=== PATIENT | male | born 1980 | race Caucasian/White ===

== ENCOUNTER 2017-07-15 22:42 | Emergency (ER) | payer SELFPAY ==
[2017-07-15] MEDS ORDERED: POLYMYXIN B SULF/TRIMETHOPRIM OPHTHALMIC DROPS OP ONE (22:53)
[2017-07-15 22:59] VITALS: BP 133/76
--- NOTE | 2017-07-15 23:08 | ED Physician Documentation ---
Eye Problem - HISTORIAN Historian: patient - HPI Stated Complaint: R EYE SWOLLEN Chief Complaint: Eye Problems Additional Information: Red eye with burning discomfort and green drainage for 2-3 days. Has tried benadryl. Had conjunctivitis a few months ago but stopped medication when he got better, Location: right eye - ROS CONST: no problems - PAST HX Past History: prior eye problem Allergies/Adverse Reactions: Allergies Allergy/AdvReac Type Severity Reaction Status Date / Time No Known Allergies Allergy Verified 07/15/17 22:53 Home Medications: Ambulatory Orders Medication Instructions Recorded NK [NK] 07/15/17 - SOCIAL HX Smoking History: non-smoker - FAMILY HX Family History: no significant history - VITAL SIGNS Vital Signs: Vital Signs Temp Pulse Resp BP Pulse Ox 98.7 F 66 18 133/76 99 07/15/17 22:42 07/15/17 22:42 07/15/17 22:42 07/15/17 22:42 07/15/17 22:42 - REVIEWED ASSESSMENTS Nursing Assessment Reviewed: Yes Vitals Reviewed: Yes ED Results Lab/Radiology - Orders Orders: ED Orders Category Date Time Status Polymyxin B Sulf/Trimethoprim [Polytrim] Med 07/15/17 22:53 Once 1 drop OP NOW ONE Eye Problem Physical Exam - Physical Exam General Appearance: alert, moderate distress Eyelids: nml inspection Conjunctiva and Sclera: injected (R) Corneas: nml inspection EOM: intact Pupils: equal Anterior Chambers: nml inspection Head/ENT: nml inspection Skin: nml color (except slight erythema and mild swelling about right eye), warm Neck/Back: nml inspection Respiratory: no resp distress Neuro/Psych: neuro intact Discharge Clincal Impression: Conjunctivitis Qualifiers: Conjunctivitis type: acute Acute conjunctivitis type: unspecified Laterality: right Qualified Code(s): H10.31 - Unspecified acute conjunctivitis, right eye Referrals: Primary Doctor,No [Primary Care Provider] - 2 Days Condition: Good Disposition: 01 HOME, SELF-CARE Decision to Admit: NO Decision Time: 23:09
== END 2017-07-15 23:10 | disposition home or self-care (01) ==
LOC: ED 22:42
DX: H10.31 Unspecified acute conjunctivitis, right eye (principal)
CPT/HCPCS: 99282

== ENCOUNTER 2018-02-20 17:18 | Emergency (ER) | payer SELFPAY ==
[2018-02-20 18:02] VITALS: BP 121/76
[2018-02-20] MEDS ORDERED: DOXYCYCLINE 100 MG CAPSULE PO STA (18:15)
--- NOTE | 2018-02-20 18:27 | ED Physician Documentation ---
Addendum entered and electronically signed by Kaela Page FNP 02/21/18 10:24: Pt returned for a prescription he could afford. No change in symptoms. Bactrim DS take 1 by mouth every 12 hours given as a prescription due to documentation review and cost of med DG Original Note: Abscess - HISTORIAN Historian: patient - HPI Stated Complaint: Possible spider bite Chief Complaint: Abscess Additional Information: intro self as [employer]. pt presents to the ED via POV c/o abscess to Right upper lip. pt reports yesterday he noticed pus area on his upper lip, so tried to squeeze it and got a small amount of clear to white liquid out. Today he states area is now scabbed over. denies fever/chills or other complaints. pt denies current chest pain, dyspnea, syncope/near syncope, headache, dizz iness, visual disturbances, n/v/d, fever/chills, rash, sick contacts, dysuria, trauma. melena or hematochezia, bleeding or easy bruising, change in bowel or bladder function, no recent weight loss/gain, anxiety or depression. ROS Negative unless otherwise specified. Onset: days ago (yesterday) - ROS CONST: none - PAST HX Past History: none Other History: none Surgeries/Procedures: No Allergies/Adverse Reactions: Allergies Allergy/AdvReac Type Severity Reaction Status Date / Time No Known Allergies Allergy Verified 07/15/17 22:53 Home Medications: Ambulatory Orders Medication Instructions Recorded NK 07/15/17 - SOCIAL HX Smoking History: less than 1 pack/day Alcohol Use: none Drug Use: marijuana - FAMILY HX Family History: none - VITAL SIGNS Vital Signs: Vital Signs Temp Pulse Resp BP Pulse Ox 98.2 F 76 16 121/76 99 02/20/18 17:20 02/20/18 17:20 02/20/18 17:20 02/20/18 17:20 02/20/18 17:20 - REVIEWED ASSESSMENTS Nursing Assessment Reviewed: Yes Vitals Reviewed: Yes ED Results Lab/Radiology - Orders Orders: ED Orders Category Date Time Status Doxycycline Monohydrate [Vibramycin] Med 02/20/18 18:15 Discontinued 100 mg PO NOW STA Abscess Physical Exam - EXAM General Appearance: no acute distress, alert Skin: abscess (2 cm x 0.5 cm area abscess-draining) Location: other (upper right lip) Symptoms: warmth (mild), tenderness (mild), swelling (mild ) Extremities: non-tender, nml ROM, no edema EENT: eyes nml inspection, lips nml, gums nml, pharynx nml Neck: trachea midline, no swelling Respiratory: no resp distress Abdomen: No: guarding Neuro/Psych: oriented x3, motor nml, sensation nml, mood/affect nml Discharge Clincal Impression: Abscess Additional Instructions: Doxycycline 100 mg twice a day for ten days. take with food. Follow up with primary care next week for recheck stop smoking seek medical care immediately if weakness, difficulty breathing, feeling faint or fainting, increased rash, chest pain, shortness of breath, or fever or any concern. PLEASE UNDERSTAND THAT THIS IS AN EMERGENCY EVALUATION FOR YOUR COMPLAINT AND BY NATURE IS LIMITED AND NOT A SUBSTITUTE FOR ONGOING MEDICAL CARE. EVEN THOUGH TEST RESULTS AND TREATMENT PLAN WERE EXPLAINED THERE MAY BE A NEED FOR ADDITIONAL TESTING TO FULLY DETERMINE THE EXTENT OF YOUR ILLNESS/INJURY/OR CONCERN SO YOU SHOULD CONTACT AND OR ESTABLISH WITH A PRIMARY CARE PROVIDER (OR REFERRAL DOCTOR IF APPLICABLE) FOR AN APPOINTMENT SOON POSSIBLE Condition: Good Disposition: 01 HOME, SELF-CARE Decision to Admit: NO Date of Decison to Admit: 02/20/18 Decision Time: 18:17
== END 2018-02-20 18:50 | disposition home or self-care (01) ==
LOC: ED 17:18
DX: L02.01 Cutaneous abscess of face (principal)
CPT/HCPCS: 99282; 99283

== ENCOUNTER 2018-07-02 08:05 | Emergency (ER) | payer SELFPAY ==
--- NOTE | 2018-07-02 08:34 | ED Physician Documentation ---
General Adult - HPI Stated Complaint: ankle pain Chief Complaint: General Adult Additional Information: Patient presents to ED with a 3 day history of worsening right lateral ankle pain and swelling/redness. Patient denies any injury to the ankle. He states he has had this swelling/pain in his ankle in the past, however, it usually goes away on its own. The pain/swelling/redness is always in the same place. Patient then goes on to state he passed out 3 times this morning on the way to the bathroom. He got out of bed this morning and took 2 steps and everything went black. He was able to catch himself before he hit the floor. His room mate helped him sit up against the wall and everything went black again. Then his room mate helped him stand up and things went black again. Patient reports never losing consciousness, "things just go black". Patient admits to having these spells in the past too. He goes on to state his father had the same symptoms which began in his 30s. Patient denies hitting his head. Onset: days ago (3) Timing: still present Severity: moderate - ROS CONST: denies: fever EYES/ENT: denies: problems with vision CVS/RESP: denies: chest pain, shortness of breath GI/: denies: abdominal pain, vomiting, nausea MS/SKIN/LYMPH: none NEURO/PSYCH: fainting. denies: headache - PAST HX Past History: none Other History: none Allergies/Adverse Reactions: Allergies Allergy/AdvReac Type Severity Reaction Status Date / Time No Known Allergies Allergy Verified 07/02/18 08:20 Home Medications: Ambulatory Orders Medication Instructions Recorded Sulfamethoxazole/Trimethoprim 1 each PO BID #20 tablet 07/02/18 [Bactrim Ds] - SOCIAL HX Smoking History: cigarettes, greater than 1 pack/day Alcohol Use: rarely Drug Use: marijuana - FAMILY HX Family History: No - VITAL SIGNS Vital Signs: Vital Signs Temp Pulse Resp BP Pulse Ox 97.6 F 93 H 19 117/67 97 07/02/18 08:10 07/02/18 08:10 07/02/18 08:10 07/02/18 08:10 07/02/18 08:10 - REVIEWED ASSESSMENTS Nursing Assessment Reviewed: Yes Vitals Reviewed: Yes ED Results Lab/Radiology - Radiology Radiology Impressions: Report Submission Date: July 02, 2018 9:12:38 AM CDT Patient Study Name: ROLANDA SNYDER Date: July 02, 2018 8:51:37 AM CDT Modality Type: DX Gender: M Description: ANKLE 3 VIEWS OR MORE : 84 Institution: [facility] Physician: DONYA FOX Examination: Plain film right ankle History: RT LATERAL ANKLE PAIN AND SWELLING Findings: 3 views of the right ankle demonstrates mild degenerative spurring. No fracture or dislocation. Talar dome is intact. Mild lateral soft tissue swelling. Joint effusion. Impression: Joint effusion. Mild lateral soft tissue swelling. No acute appearing cortical abnormality. Electronically signed on July 02, 2018 9:12:38 AM CDT by: Kevin Snowden - Orders Orders: ED Orders Category Date Time Status ANKLE 3 VIEWS OR MORE [RAD] Stat Exams 07/02/18 Ordered CBC/PLATELET/DIFF Routine Lab 07/02/18 Ordered CMP Routine Lab 07/02/18 Ordered URIC ACID Stat Lab 07/02/18 Ordered General Adult Physical Exam - PHYSICAL EXAM GENERAL APPEARANCE: no distress EENT: JONO NECK: supple RESPIRATORY: no resp distress, chest non-tender, breath sounds normal CVS: reg rate & rhythm, heart sounds normal ABDOMEN: soft, normal bowel sounds BACK: normal inspection, no CVA tenderness SKIN: warm/dry, normal color, other (superficial abrasions to both knees and left elbow) EXTREMITIES: edema (right lateral ankle with redness/heat) NEURO: oriented X3 Discharge Clincal Impression: Effusion of ankle joint, right, Orthostatic hypotension Prescriptions: Sulfamethoxazole/Trimethoprim [Bactrim Ds] 1 each PO BID #20 tablet Referrals: Primary Doctor,No [Primary Care Provider] - 2 Days Additional Instructions: 1. Take antibiotics until gone 2. Follow up with PCP within 1 week. Call today [phone] to make an appointment at the clinic 3. Drink plenty of fluids to maintain proper hydration. Avoid caffeine and alcohol 4. Return to ER for new or worsening symptoms Condition: Stable Disposition: 01 HOME, SELF-CARE Decision to Admit: NO Date of Decison to Admit: 07/02/18 Decision Time: 09:54
[2018-07-02 08:46] LABS: BASOPHILS % 0.6 % (0.0-1.5); EOSINOPHILS % 2.6 % (0.0-6.8); MEAN CORPUSCULAR HEMOGLOBIN 31.2 pg (28.0-34.0); NEUTROPHILS # 8.9 # k/uL (1.4-7.7)
[2018-07-02 09:18] LABS: eGFR (Non-African) > 60
[2018-07-02] MEDS ORDERED: cefTRIAXone SODIUM 1 GM in Lidocaine 1% 5ml 2.1 ML IM ONE (09:40)
[2018-07-02] MEDS ORDERED: Lidocaine 1% 5ml 10 MG/ML VIAL IJ ONE (09:40)
[2018-07-02] MEDS ORDERED: methylPREDNISolone SOD SUCC 125 MG/2 ML VIAL IM ONE (09:40)
[2018-07-02 09:57] VITALS: BP 134/73
--- NOTE | 2018-07-02 10:21 | Diagnostic Imaging Report ---
<p>Your browser does not support iframes.</p> DONYA FOX [facility] [address] [facility].[address] [address] Report Submission Date: July 02, 2018 9:12:38 AM CDT Patient Study Name: ROLANDA SNYDER Date: July 02, 2018 8:51:37 AM CDT Modality Type: DX Gender: M Description: ANKLE 3 VIEWS OR MORE : 84 Institution: [facility] Physician: DONYA FOX Examination: Plain film right ankle History: RT LATERAL ANKLE PAIN AND SWELLING Findings: 3 views of the right ankle demonstrates mild degenerative spurring. No fracture or dislocation. Talar dome is intact. Mild lateral soft tissue swelling. Joint effusion. Impression: Joint effusion. Mild lateral soft tissue swelling. No acute appearing cortical abnormality. Electronically signed on July 02, 2018 9:12:38 AM CDT by: Kevin MIR
== END 2018-07-02 10:14 | disposition home or self-care (01) ==
LOC: ED 08:05
DX: M25.471 Effusion, right ankle (principal); I95.1 Orthostatic hypotension
CPT/HCPCS: 36415; 73610; 80053; 84550; 85025; 96372; 99283; 99284; J0696; J2930

== ENCOUNTER 2018-11-09 15:50 | Emergency (ER) | payer MEDICAID, OTHER ==
[2018-11-09 16:11] VITALS: BP 126/79
--- NOTE | 2018-11-09 17:06 | ED Physician Documentation ---
Ankle Injury - HISTORIAN Historian: patient - HPI Stated Complaint: left leg pain Chief Complaint: Lower Extremity Problem Additional Information: Patient is a 37 year old male who presents to the ER with c/o left outer ankle pain that radiates up to his knee. States that this has been going on for 3 years off/on. He has not tried anything over the counter for the discomfort (drove with young son here). Onset: other (years) Where: home Severity: mild r: denies: fall, twist Associated Symptoms:: swelling (mild swelling to the lateral aspect of ankle). denies: numbness distally Modifying Factors:: pain on movement - ROS CONST: no problems CVS/RESP: none NEURO: denies: headache, head injury GI/: denies: nausea, vomiting MS/SKIN/LYMPH: ankle swelling (mild). denies: back pain, foot swelling - PAST HX Past History: none Immunizations: UTD Allergies/Adverse Reactions: Allergies Allergy/AdvReac Type Severity Reaction Status Date / Time No Known Allergies Allergy Verified 11/09/18 16:11 Home Medications: Ambulatory Orders Medication Instructions Recorded Ibuprofen [Ibu] 800 mg PO Q8H PRN #30 tablet 11/09/18 - SOCIAL HX Smoking History: greater than 1 pack/day Alcohol Use: occasionally Drug Use: marijuana - FAMILY HX Family History: none - VITAL SIGNS Vital Signs: Vital Signs Temp Pulse Resp BP Pulse Ox 98.6 F 79 18 126/79 98 11/09/18 15:50 11/09/18 15:50 11/09/18 15:50 11/09/18 15:50 11/09/18 15:50 - REVIEWED ASSESSMENTS Nursing Assessment Reviewed: Yes Vitals Reviewed: Yes ED Results Lab/Radiology - Radiology Radiology Impressions: Exam: Left ankle. History: Pain and swelling. \AP, lateral and mortise view of the left ankle are submitted. A soft tissue calcification anterior to the joint space in the lateral projection is noted. Is difficult to delineate in the AP and mortise view. No other signs of fracture or dislocation is seen. No other soft tissue abnormality is identified. Impression: Soft tissue calcification anterior to the ankle is seen in the lateral projection however it is difficult to delineate in the AP and mortise view. CT or MRI may be beneficial to further evaluate. No other signs of fracture or dislocation is seen. Electronically signed on Nov 09, 2018 4:43:39 PM CDT by: Jeremy Lopez - Orders Orders: ED Orders Category Date Time Status LEFT ANKLE [ANKLE 3 VIEWS OR MORE] [RAD] Stat Exams 11/09/18 Taken Ankle Injury Physical Exam - Physical Exam General Appearance: no acute distress, alert Foot: bilateral foot: non-tender, normal inspection, normal range of motion, no evidence of injury Ankle: left: limited range of motion, soft tissue tenderness, swelling Gait: limited by pain Neuro: sensation nml, motor nml Vascular: no vascular compromise Tendons: tendon function nml Leg/Knee/Thigh: uninjured above ankle Skin: intact, warm, dry Head/ENT: nml inspection Neck/Back: nml inspection Resp/CVS: breath sounds nml, heart sounds nml Discharge Clincal Impression: Ankle pain, left, Effusion of ankle joint, left Prescriptions: Ibuprofen [Ibu] 800 mg PO Q8H PRN #30 tablet PRN Reason: pain Referrals: Primary Doctor,No [Primary Care Provider] - 2 Days Additional Instructions: Wear addi wrap for support Ice and elevate Alternate Ibuprofen and Tylenol as needed for discomfort Will refer to Podiatry, Dr. Gallegos (erwin D eLuna) Condition: Good Disposition: 01 HOME, SELF-CARE Decision to Admit: NO Decision Time: 17:08
[2018-11-09] MEDS: KETOROLAC TROMETHAMINE 60 MG/2 ML VIAL IM ONE (17:19)
--- NOTE | 2018-11-10 06:59 | Diagnostic Imaging Report ---
LYLE LYON ED [facility] [address] [facility] [address] [address] Report Submission Date: Nov 09, 2018 4:43:39 PM CDT Patient Study Name: ROLANDA SNYDER Date: Nov 09, 2018 4:20:52 PM CDT Modality Type: DX Gender: M Description: ANKLE 3 VIEWS OR MORE : 84 Institution: [facility] Physician: LYLE LYON ED Exam: Left ankle. History: Pain and swelling. AP, lateral and mortise view of the left ankle are submitted. A soft tissue calcification anterior to the joint space in the lateral projection is noted. Is difficult to delineate in the AP and mortise view. No other signs of fracture or dislocation is seen. No other soft tissue abnormality is identified. Impression: Soft tissue calcification anterior to the ankle is seen in the lateral projection however it is difficult to delineate in the AP and mortise view. CT or MRI may be beneficial to further evaluate. No other signs of fracture or dislocation is seen. Electronically signed on Nov 09, 2018 4:43:39 PM CDT by: Jeremy MIR
== END 2018-11-09 17:27 | disposition home or self-care (01) ==
LOC: ED 15:50
DX: M25.472 Effusion, left ankle (principal)
CPT/HCPCS: 73610; 96372; 99283; 99284; J1885